=== PATIENT | male | born 1985 | race Caucasian/White ===

== ENCOUNTER 2022-09-06 11:50 | Emergency (ER) | payer SELFPAY ==
--- OUTSIDE RECORDS SUMMARY | 2022-09-06 11:52 | XMS REPORT | Continuity of Care Document ---
:1985 Author Organization [facility] t Address [address] [place] [address] Care Team Providers Name Role Phone Fabiana Gardiner Attending Clinician Unavailable Payers Payer Name Policy Type Policy Number Effective Date Expiration Date S kailey AETNA 53 [id number] [facility] Problems Condition Condition Condition Status Onset Resolution Last Treating Co mments Source Name Details Category Date Date Treatment Clinician Date [id number] Brachial Problem Common plexus [facility] dysfunctio - [facility] [id number] Non-season Problem Com mon al [facility] - [facility] rhinitis [facility] due to [facility] [id number] Other Problem Common chronic [facility] pain [facility] Allergies, Adverse Reactions, Alerts This patient has no known allergies or adverse reactions. Social History Social Habit Start Date Stop Date Quantity Comments Source Sex Assigned At Com mon [facility] History of Tobacco Use Co mmon [facility] Smoking Status Start Date Stop Date Source Never Smoker [facility] Medications Ordered Filled Start Stop Current Ordering Indication Dosage Frequency Signature Comments Components Source Medication Medication Date Date Medication? Clinician (SIG) Name Name Terbinafine Terbinafine No 1{table QD Terbinafin HCl 250 MG HCl 250 MG 8-12 t} e HCl 250 00:00: MG 00 Terbinafine Terbinafine 0 No 1{table QD Terbinafin HCl 250 MG HCl 250 MG 8-12 t} e HCl 250 00:00: MG 00 Terbinafine Terbinafine 2021- No 1{table QD Terbinafin HCl 250 MG HCl 250 MG 10-10 t} e HCl 250 00:00: 00:00 MG 00 :00 Terbinafine Terbinafine 2021- No 1{table QD Terbinafin HCl 250 MG HCl 250 MG 10-10 t} e HCl 250 00:00: 00:00 MG 00 :00 Vitamin Vitamin No Vitamin B-Complex - B-Complex - B-Complex - Azelastine- Azelastine- No 1{spray BID Azelastine Fluticasone Fluticasone _in_eac -Fluticaso 137-50 137-50 h_nostr ne 137-50 MCG/ACT MCG/ACT il} MCG/ACT Vitamin D Vitamin D No Vitamin D Vitamin Vitamin No Vitamin B-Complex - B-Complex - B-Complex - Azelastine- Azelastine- No 1{spray BID Azelastine Fluticasone Fluticasone _in_eac -Fluticaso 137-50 137-50 h_nostr ne 137-50 MCG/ACT MCG/ACT il} MCG/ACT Vitamin D Vitamin D No Vitamin D Montelukast Montelukast No 1{table QD Montelukas Sodium 10 Sodium 10 t} t Sodium MG MG 10 MG ZyrTEC ZyrTEC No ZyrTEC Allergy Allergy Allergy Azelastine- Azelastine- No 1{spray BID Azelastine Fluticasone Fluticasone _in_eac -Fluticaso 137-50 137-50 h_nostr ne 137-50 MCG/ACT MCG/ACT il} MCG/ACT Vitamin D Vitamin D No Vitamin D Vitamin Vitamin No Vitamin B-Complex - B-Complex - B-Complex - Montelukast Montelukast No 1{table QD Montelukas Sodium 10 Sodium 10 t} t Sodium MG MG 10 MG ZyrTEC ZyrTEC No ZyrTEC Allergy Allergy Allergy Azelastine- Azelastine- No 1{spray BID Azelastine Fluticasone Fluticasone _in_eac -Fluticaso 137-50 137-50 h_nostr ne 137-50 MCG/ACT MCG/ACT il} MCG/ACT Vitamin D Vitamin D No Vitamin D Vitamin Vitamin No Vitamin B-Complex - B-Complex - B-Complex - Montelukast Montelukast No 1{table QD Montelukas Sodium 10 Sodium 10 t} t Sodium MG MG 10 MG Vitamin Vitamin No Vitamin B-Complex - B-Complex - B-Complex - Vitamin D Vitamin D No Vitamin D ZyrTEC ZyrTEC No ZyrTEC Allergy Allergy Allergy Baclofen Baclofen No Baclofen Azelastine- Azelastine- No 1{spray BID Azelastine Fluticasone Fluticasone _in_eac -Fluticaso 137-50 137-50 h_nostr ne 137-50 MCG/ACT MCG/ACT il} MCG/ACT Terbinafine Terbinafine No 1{table QD Terbinafin HCl 250 MG HCl 250 MG t} e HCl 250 MG Vital Signs Vital Name Observation Time Observation Value Comments Source height 2022-01-14 10:00:00 77 [in_i] [facility] weight 2022-01-14 10:00:00 207 [lb_av] [facility] temperature 2022-01-14 10:00:00 98.0 [degF] [facility] bmi 2022-01-14 10:00:00 24.54 kg/m2 [facility] oximetry 2022-01-14 10:00:00 96 % [facility] respiratory rate 2022-01-14 10:00:00 17 /min [facility] blood pressure 2022-01-14 10:00:00 104 mm[Hg] [facility] - systolic [facility] blood pressure 2022-01-14 10:00:00 61 mm[Hg] [facility] - diastolic [facility] height 2021-11-14 08:20:00 77 [in_i] [facility] weight 2021-11-14 08:20:00 212 [lb_av] [facility] temperature 2021-11-14 08:20:00 98.3 [degF] [facility] bmi 2021-11-14 08:20:00 25.14 kg/m2 Common [facility] oximetry 2021-11-14 08:20:00 98 % [facility] respiratory rate 2021-11-14 08:20:00 16 /min Comm on [facility] blood pressure 2021-11-14 08:20:00 124 mm[Hg] Common [facility] - systolic [facility] blood pressure 2021-11-14 08:20:00 64 mm[Hg] Common [facility] - diastolic [facility] height 2021-10-10 09:00:00 77 [in_i] Common [facility] weight 2021-10-10 09:00:00 201.2 [lb_av] [facility] temperature 2021-10-10 09:00:00 98.5 [degF] Common [facility] bmi 2021-10-10 09:00:00 23.86 kg/m2 Common [facility] oximetry 2021-10-10 09:00:00 98 % Common [facility] respiratory rate 2021-10-10 09:00:00 16 /min Comm on [facility] blood pressure 2021-10-10 09:00:00 132 mm[Hg] Common [facility] - systolic [facility] blood pressure 2021-10-10 09:00:00 78 mm[Hg] Common [facility] diastolic [facility] Procedures This patient has no known procedures. Encounters Start End Encounter Admission Attending Care Care Encounter Source Date/Time Date/Time Type Type Clinicians Facility Department ID 2022-03-19 [facility] [id number] Common 15:35:03 Fabiana [id number] [facility] 2022-01-[address] [facility] [id number] Common 13:49:10 Fabiana [id number] [facility] 2022-01-[address] [facility] [id number] Common 15:42:02 Fabiana [id number] [facility] 2021-10-10 Outpatient Gardiner, STLMLC STLMLC [id number] Common 09:01:03 Fabiana [id number] [facility] 2022-01-14 2022-01-14 OFFICE STLMLC STLMLC [id number] Co mmon 00:00:00 00:00:00 VISIT EST Spir it PT LEVEL 3 [facility] 2021-12-29 2021-12-29 (TEL) STLMLC STLMLC [id number] Co mmon 00:00:00 00:00:00 [facility] 2021-11-14 2021-11-14 (WELLNESS) STLMLC STLMLC [id number] Common 00:00:00 00:00:00 Wellness Spiri t [facility] 2021-10-13 2021-10-13 (TEL) STLMLC STLMLC [id number] Co mmon 00:00:00 00:00:00 [facility] 2021-10-10 2021-10-10 OFFICE STLMLC STLMLC [id number] Co mmon 00:00:00 00:00:00 VISIT NEW Spir it PT LEVEL 3 [facility] Results This patient has no known results.
--- NOTE | 2022-09-06 13:30 | RAD REPORT ---
EXAM DESCRIPTION: YULIYA VILLATORO - 09/06/2022 12:34 pm CLINICAL HISTORY: PAIN COMPARISON: No comparisons TECHNIQUE: Left hand, 3 views. FINDINGS: No fracture is identified. There is no dislocation or periosteal reaction noted. Joint alignment is maintained. No foreign body or other soft tissue abnormality. IMPRESSION: Negative left hand examination.
--- NOTE | 2022-09-06 13:34 | ER ---
Nurse's Notes [facility] Name: Cayden Crawley Age: 37 yrs Sex: Male : 1985 Arrival Date: 09/06/2022 Time: 11:50 Bed 11 Private MD: Diagnosis: Pain in left finger(s) Presentation: 09/06 11:57 Chief complaint: Patient states: he was swimming and jammed his left ring finger when ap3 back stroking. patient reports the injury occurred 2-3 weeks ago. Coronavirus screen: At this time, the client does not indicate any symptoms associated with coronavirus-19. Ebola Screen: No symptoms or risks identified at this time. Initial Sepsis Screen: Does the patient meet any 2 criteria? No. Patient's initial sepsis screen is negative. Does the patient have a suspected source of infection? No. Patient's initial sepsis screen is negative. Risk Assessment: Do you want to hurt yourself or someone else? Patient reports no desire to harm self or others. Onset of symptoms was August 23, 2022. 11:57 Method Of Arrival: Ambulatory ap3 11:57 Acuity: MATTEO 4 ap3 Triage Assessment: 11:59 General: Appears in no apparent distress. Behavior is calm, cooperative. Pain: ap3 Complains of pain in left ring finger Pain began 2-3 weeks ago. Neuro: Level of Consciousness is awake, alert, obeys commands, Oriented to person, place, time, situation. Cardiovascular: Patient's skin is warm and dry. Respiratory: Airway is patent Respiratory effort is even, unlabored, Respiratory pattern is regular, symmetrical. Musculoskeletal: Reports pain in left ring finger since 2-3 weeks ago. 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 - Social history:: Smoking status: Patient denies any tobacco usage or history of. Screenin:00 [facility] ED Fall Risk Assessment (Adult) History of falling in the last 3 months, ap3 including since admission No falls in past 3 months (0 pts). Abuse screen: Denies threats or abuse. Nutritional screening: No deficits noted. Tuberculosis screening: No symptoms or risk factors identified. Assessment: 12:35 Reassessment: No changes from previously documented assessment. Patient and/or family cm10 updated on plan of care and expected duration. Pain level reassessed. Patient is alert, oriented x 3, equal unlabored respirations, skin warm/dry/pink. Neuro: No deficits noted. Level of Consciousness is awake, alert, Oriented to person, place, time, situation. Respiratory: No deficits noted. Airway is patent Respiratory effort is even, unlabored, Respiratory pattern is regular, symmetrical. Vital Signs: 11:59 BP 117 / 82; Pulse 89; Resp 18; Temp 98.4; Pulse Ox 100% ; Weight 90.72 kg; Pain 0/10; ap3 11:59 Pain Scale: Adult ap3 ED Course: 11:52 Patient arrived in ED. im 11:55 Ni Brewer, RN is Primary Nurse. cm10 11:58 Triage completed. ap3 12:00 Arm band placed on right wrist. ap3 12:04 Zo Sanches PA-C is PHCP. sb4 12:04 Kenrick Alves MD is Attending Physician. sb4 12:35 XRAY Hand LEFT 3 View In Process Unspecified. EDMS 12:36 Patient has correct armband on for positive identification. Bed in low position. Call cm10 light in reach. 12:36 No provider procedures requiring assistance completed. Patient did not have IV access cm10 during this emergency room visit. 13:33 Dipesh Monterroso MD is Referral Physician. sb4 Administered Medications: No medications were administered Medication: 12:36 VIS not applicable for this client. cm10 Outcome: 13:34 Discharge ordered by . sb4 13:55 Discharged to home ambulatory. cm10 13:55 Condition: good 13:55 Discharge instructions given to patient, Instructed on discharge instructions, follow up and referral plans. Demonstrated understanding of instructions, follow-up care. 13:56 Patient left the ED. cm10 Signatures: Dispatcher [employer] EDMS Nimco Guerra RN RN ap3 Zo Sanches PA-C PA-C sb4 Millicent Nix im Ni Brewer RN RN cm10 Corrections: (The following items were deleted from the chart) 12:36 12:35 Injury Description: Laceration sustained to left hand and left ring finger is cm10 clean, not bleeding, cm10
--- NOTE | 2022-09-06 13:34 | EDPHYS ---
Physician Documentation [facility] Name: Cayden Crawley Age: 37 yrs Sex: Male : 1985 Arrival Date: 09/06/2022 Time: 11:50 Bed 11 Private MD: ED Physician Kenrick Alves HPI: 09/06 12:17 This 37 yrs old Male presents to ER via Ambulatory with complaints of Finger Injury - 2 sb4 weeks old left hand ring finger. 12:17 37 year old male presents with pain to left ring finger. He states that he was swimming sb4 2 weeks ago and jammed it against the edge of a swimming pool. Reports mild pain but yesterday the pain increased and felt very sharp. Neurovascularly intact. 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 - Social history:: Smoking status: Patient denies any tobacco usage or history of. ROS: 12:17 Constitutional: Negative for fever, chills, and weight loss. sb4 12:17 MS/extremity: Positive for pain, of the left hand and left ring finger. 12:17 All other systems are negative. Exam: 12:17 Constitutional: This is a well developed, well nourished patient who is awake, alert, sb4 and in no acute distress. Head/Face: Normocephalic, atraumatic. Eyes: Extra-ocular motions intact. Periorbital areas with no swelling, redness, or edema. 12:17 Musculoskeletal/extremity: ROM: intact in all extremities, Circulation is intact in all extremities. the left hand and left ring finger Sensation intact. Vital Signs: 11:59 BP 117 / 82; Pulse 89; Resp 18; Temp 98.4; Pulse Ox 100% ; Weight 90.72 kg; Pain 0/10; ap3 11:59 Pain Scale: Adult ap3 MDM: 12:04 Patient medically screened. sb4 13:32 Data reviewed: radiologic studies, plain films, and as a result, I will discharge sb4 patient. Independent interpretation of the following test(s) in the Emergency Department X-Ray: My interpretation is my interpretation of the hand xray images are negative for acute fracture or dislocation. Counseling: I had a detailed discussion with the patient and/or guardian regarding: the historical points, exam findings, and any diagnostic results supporting the discharge/admit diagnosis, radiology results, to return to the emergency department if symptoms worsen or persist or if there are any questions or concerns that arise at home. 09/06 12:17 Order name: XRAY Hand LEFT 3 View; Complete Time: 13:30 sb4 09/06 13:32 Order name: Misc. Order: kalina tape 4th and 5th finger; Complete Time: 13:43 sb4 Administered Medications: No medications were administered Disposition Summary: 09/06/22 13:34 Discharge Ordered Location: Home sb4 Problem: an ongoing problem sb4 Symptoms: are unchanged sb4 Condition: Stable sb4 Diagnosis - Pain in left finger(s) sb4 Followup: sb4 - With: Dipesh Monterroso MD - When: 7 - 10 days - Reason: Further diagnostic work-up, Recheck today's complaints, Re-evaluation by your physician Discharge Instructions: - Discharge Summary Sheet sb4 - Musculoskeletal Pain sb4 - How to Use Cold Therapy, [id number] sb4 - Heat Therapy, [id number] sb4 Forms: - Medication Reconciliation Form sb4 - Thank You Letter sb4 - Antibiotic Education sb4 - Prescription Opioid Use sb4 - [email or web address] sb4 Signatures: Dispatcher [employer] Nimco Mast RN RN ap3 Zo Sanches PA-C PA-C sb4
[2022-09-06 14:11] VITALS: BP 117/82; TEMP 98.4; O2SAT 100
== END 2022-09-06 13:56 | disposition home or self-care (01) ==
LOC: ER 11:50
DX: M79.645 Pain in left finger(s) (principal)
CPT/HCPCS: 99283